=== PATIENT | male | born 1965 | race Caucasian/White ===

== ENCOUNTER 2016-06-13 13:18 | Outpatient (CLI) ==
[2014-08-09 12:00] VITALS: BMI 32.3
[2016-06-13 14:12] LABS: BASOPHILS # (AUTO) 0.1 K/uL (0-0.2); BASOPHILS % (AUTO) 0.7 % (0.0-3.0); EOSINOPHILS # (AUTO) 0.7 K/ul (0.0-0.7); EOSINOPHILS % (AUTO) 9.8 % (0.0-7.0); HEMATOCRIT 45.2 % (42.0-52.0); HEMOGLOBIN 15.7 g/dl (14.0-18.0); IMMATURE GRANULOCYTE % (AUTO) 0.4 % (0.0-5.0); LYMPHOCYTES # (AUTO) 1.4 K/uL (0.60-3.4); LYMPHOCYTES % (AUTO) 19.6 (10.0-50.0); MEAN CORPUSCULAR HEMOGLOBIN 32.8 pg (27.0-31.0); MEAN CORPUSCULAR HGB CONC 34.7 (31.8-35.4); MEAN CORPUSCULAR VOLUME 94.6 fl (80.0-94.0); MONOCYTES # (AUTO) 0.5 K/uL (0.4-2.0); NEUTROPHILS # (AUTO) 4.6 K/ul (2.0-6.9); NEUTROPHILS % (AUTO) 62.5; PLATELET COUNT 128 10^3/uL (140-440); RED BLOOD COUNT 4.78 10^6/ul (4.70-6.10); WHITE BLOOD COUNT 7.31 K/ul (4.2-10.2)
[2016-06-13 14:29] LABS: ALBUMIN 3.7 g/dL (3.4-5.0); ALBUMIN/GLOBULIN RATIO 1.03; BILIRUBIN,TOTAL 0.55 mg/dL (0.00-1.20); BUN/CREATININE RATIO 9.09; CALCIUM 9.4 mg/dL (8.2-10.2); CHOL/HDL RATIO 3.4 (4.5-6.4); CREATININE 0.88 mg/dL (0.60-1.10); TOTAL PROTEIN 7.3 g/dL (6.4-8.2)
== END 2016-06-13 13:19 | disposition home or self-care (01) ==
LOC: LAB 13:18
PROVIDERS: ATTEND Nurse Practitioner Family
DX: E11.9 Type 2 diabetes mellitus without complications (principal); I10 Essential (primary) hypertension; E78.1 Pure hyperglyceridemia; E78.5 Hyperlipidemia, unspecified; Z12.5 Encounter for screening for malignant neoplasm of prostate
CPT/HCPCS: 36415; 80053; 80061; 83036; 85025

== ENCOUNTER 2016-10-03 12:50 | Outpatient (CLI) ==
[2014-08-09 12:00] VITALS: BMI 32.3
[2016-10-03 13:47] LABS: ALBUMIN 3.7 g/dL (3.4-5.0); ALBUMIN/GLOBULIN RATIO 1.19; ANION GAP 15.7; BILIRUBIN,TOTAL 0.89 mg/dL (0.00-1.20); BUN/CREATININE RATIO 10.34; CALCIUM 8.9 mg/dL (8.2-10.2); CREATININE 0.87 mg/dL (0.60-1.10); POTASSIUM 3.7 mmol/L (3.5-5.1); TOTAL PROTEIN 6.8 g/dL (6.4-8.2)
[2016-10-03 14:40] LABS: BASOPHILS # (AUTO) 0.1 K/uL (0-0.2); EOSINOPHILS # (AUTO) 0.8 K/ul (0.0-0.7); EOSINOPHILS % (AUTO) 9.8 % (0.0-7.0); HEMATOCRIT 43.3 % (42.0-52.0); HEMOGLOBIN 15.1 g/dl (14.0-18.0); IMMATURE GRANULOCYTE % (AUTO) 0.4 % (0.0-5.0); LYMPHOCYTES % (AUTO) 24.2 (10.0-50.0); MEAN CORPUSCULAR HGB CONC 34.9 (31.8-35.4); MEAN CORPUSCULAR VOLUME 94.5 fl (80.0-94.0); MONOCYTES # (AUTO) 0.5 K/uL (0.4-2.0); MONOCYTES % (AUTO) 6.3 (0-10); NEUTROPHILS # (AUTO) 4.9 K/ul (2.0-6.9); NEUTROPHILS % (AUTO) 58.3; PLATELET COUNT 125 10^3/uL (140-440); RED BLOOD COUNT 4.58 10^6/ul (4.70-6.10); WHITE BLOOD COUNT 8.38 K/ul (4.2-10.2)
== END 2016-10-03 12:51 | disposition home or self-care (01) ==
LOC: LAB 12:50
PROVIDERS: ATTEND Nurse Practitioner Family
DX: E11.9 Type 2 diabetes mellitus without complications (principal); E78.1 Pure hyperglyceridemia; E78.5 Hyperlipidemia, unspecified; D64.9 Anemia, unspecified; E55.9 Vitamin D deficiency, unspecified; I10 Essential (primary) hypertension; Z12.5 Encounter for screening for malignant neoplasm of prostate
CPT/HCPCS: 36415; 80053; 80061; 82306; 83036; 84443; 85025

== ENCOUNTER 2017-01-28 13:00 | Outpatient (CLI) ==
[2014-08-09 12:00] VITALS: BMI 32.3
[2017-01-28 13:22] LABS: BASOPHILS # (AUTO) 0.1 K/uL (0-0.2); BASOPHILS % (AUTO) 1.2 % (0.0-3.0); EOSINOPHILS # (AUTO) 0.8 K/ul (0.0-0.7); EOSINOPHILS % (AUTO) 11.8 % (0.0-7.0); HEMATOCRIT 45.7 % (42.0-52.0); HEMOGLOBIN 16.3 g/dl (14.0-18.0); IMMATURE GRANULOCYTE % (AUTO) 0.3 % (0.0-5.0); LYMPHOCYTES # (AUTO) 2.6 K/uL (0.60-3.4); LYMPHOCYTES % (AUTO) 38.5 (10.0-50.0); MEAN CORPUSCULAR HEMOGLOBIN 34.2 pg (27.0-31.0); MEAN CORPUSCULAR HGB CONC 35.7 (31.8-35.4); MONOCYTES # (AUTO) 0.5 K/uL (0.4-2.0); MONOCYTES % (AUTO) 7.4 (0-10); NEUTROPHILS # (AUTO) 2.7 K/ul (2.0-6.9); NEUTROPHILS % (AUTO) 40.8; PLATELET COUNT 158 10^3/uL (140-440); RED BLOOD COUNT 4.76 10^6/ul (4.70-6.10); WHITE BLOOD COUNT 6.62 K/ul (4.2-10.2)
[2017-01-28 13:34] LABS: ALBUMIN 3.7 g/dL (3.4-5.0); ANION GAP 17.8; BILIRUBIN,TOTAL 0.64 mg/dL (0.00-1.20); BUN/CREATININE RATIO 12.5; CALCIUM 9.5 mg/dL (8.2-10.2); CHOL/HDL RATIO 4.9 (4.5-6.4); CREATININE 0.8 mg/dL (0.60-1.10); POTASSIUM 3.8 mmol/L (3.5-5.1); TOTAL PROTEIN 7.4 g/dL (6.4-8.2)
== END 2017-01-28 13:01 | disposition home or self-care (01) ==
LOC: LAB 13:00
PROVIDERS: ATTEND Nurse Practitioner Family
DX: E78.1 Pure hyperglyceridemia (principal); E11.9 Type 2 diabetes mellitus without complications; N18.9 Chronic kidney disease, unspecified; D63.1 Anemia in chronic kidney disease
CPT/HCPCS: 36415; 80053; 80061; 83036; 85025

== ENCOUNTER 2017-05-08 08:31 | Outpatient (CLI) | payer OTHER ==
[2014-08-09 12:00] VITALS: BMI 32.3
== END 2017-05-08 08:32 | disposition home or self-care (01) ==
LOC: LAB 08:31
PROVIDERS: ATTEND Nurse Practitioner Family
DX: E78.1 Pure hyperglyceridemia (principal); E78.5 Hyperlipidemia, unspecified; E11.9 Type 2 diabetes mellitus without complications; D69.6 Thrombocytopenia, unspecified; Z72.0 Tobacco use
CPT/HCPCS: 36415; 80053; 80061; 83036; 85025

== ENCOUNTER 2017-08-16 13:45 | Outpatient (CLI) ==
[2014-08-09 12:00] VITALS: BMI 32.3
== END 2017-08-16 13:46 | disposition home or self-care (01) ==
LOC: LAB 13:45
PROVIDERS: ATTEND Nurse Practitioner Family
DX: E11.9 Type 2 diabetes mellitus without complications (principal); E78.1 Pure hyperglyceridemia; I10 Essential (primary) hypertension
CPT/HCPCS: 36415; 80053; 80061; 83036; 85025

== ENCOUNTER 2017-10-09 14:58 | Emergency (ER) ==
[2017-10-09 15:08] VITALS: BP 146/92; TEMP 98.8; BMI 29.0
[2017-10-09] MEDS ORDERED: NORCO 10-325 PO STA (15:25)
--- NOTE | 2017-10-09 15:41 | ED.PDOC ---
General ED Provider: Dr. BRENDA TROTTER Chief Complaint: Chest Wall Injury/Pain Stated Complaint: right lower chest wall blunt trauma Time Seen by Physician: 15:00 (NELLY PRESENT AT ALL TIMES ) Mode of Arrival: Walk-In Information Source: Patient Exam Limitations: No limitations Primary Care Provider: AJIT MONTOYA Nursing and Triage Documentation Reviewed and Agree: Yes (NO HEAD OR NECK INJURY ) Does patient meet sepsis criteria?: No System Inflammatory Response Syndrome: Not Applicable Sepsis Protocol: For patient's 13 years and over: Temp is 96.8 and below OR 101 and greater Pulse >90 BPM Resp >20/minute Acutely Altered Mental Status Are patient's symptoms suggestive of a new infection, such as: -Pneumonia -Skin, Soft Tissue -Endocarditis -UTI -Bone, Joint Infection -Implantable Device -Acute Abdominal Infection -Wound Infection -Meningitis -Blood Stream Catheter Infection -Unknown Trauma/Injury Complaint Exam - Truncal Trauma Complaint/Exam Location of Pain: Reports: Right, Chest, Abdomen (RUQ ) Onset: 1 DAY A Symptoms Are: Still present Onset of Pain: Reports: Hours Initial Severity: Moderate Current Severity: Mild Mechanism: Reports: Blunt trauma, Direct blow, Fall. Denies: Penetrating trauma Aggravating: Reports: Movement Alleviating: Reports: Rest Associated Signs and Symptoms: Reports: Nausea Related Surgical History: Reports: None C-Collar in Place: N/A Backboard in Place: N/A Vertebral Tenderness Present: No Vertebral Deformity Present: No Trachial Deviation Present: No JVD Present: No Crepitus Present: No Diminished Breath Sounds: No Reproducible Pain at: YES NO POINT TENDERNESS BUT REPORTS OF A PAIN OVER T SPINE Muffled Heart Sounds Present: No Paradoxical Chest Wall Movement Present: No Abdominal Guarding Present: No Abdominal Rigidity Present: No Referred Shoulder Pain (Kehr's Sign) Present: No Skin Findings: Present: Normal findings Differential Diagnoses: Liver Trauma, Rib Fracture, Thoracic Sprain, Thoracic Strain Review of Systems - Review Of Systems Constitutional: Reports: No symptoms Eyes: Reports: No symptoms Ears, Nose, Mouth, Throat: Reports: No symptoms Respiratory: Reports: No symptoms Cardiac: Reports: Other (RIGHTSIDED CHEST WALL TENDERNESS AND RUQ PAIN) GI: Reports: Abdominal pain (SEE ABOVE) : Reports: No symptoms Musculoskeletal: Reports: Back pain (ONLY T SPINE ) Skin: Reports: No symptoms Neurological: Reports: No symptoms Endocrine: Reports: No symptoms Hematologic/Lymphatic: Reports: No symptoms All Other Systems: Reviewed and Negative Past Medical History - Past Medical History Previously Healthy: No Endocrine: Reports: None, DM 2, Dyslipidemia Cardiovascular: Reports: Hypertension Respiratory: Reports: None Hematological: Reports: None, Other (MASTOCYTOSIS) Gastrointestinal: Reports: GERD Genitourinary: Reports: CKD, Other (GOUT) Neuro/Psych: Reports: Seizure, Depression Musculoskeletal: Reports: Gout Cancer: Reports: None - Surgical History General Surgical History: Reports: None - Family History Family History: Reports: None - Social History Smoking Status: Current every day smoker, Light tobacco smoker Hx Substance Use: No Alcohol Screening: Occasionally Physical Exam - Physical Exam Appearance: Well-appearing, No pain distress, Well-nourished Eyes: CESARIO, EOMI, Conjunctiva clear ENT: Ears normal, Nose normal, Oropharynx normal Respiratory: Airway patent, Breath sounds clear, Breath sounds equal, Respirations nonlabored Cardiovascular: RRR, Pulses normal, No rub, No murmur GI/: Soft, Nontender, No masses, Bowel sounds normal, No Organomegaly Musculoskeletal: Normal strength (RIGHT CHEST WALL PAIN) Skin: Warm, Dry, Normal color Neurological: Sensation intact, Motor intact, Reflexes intact, Cranial nerves intact, Alert, Oriented Psychiatric: Affect appropriate, Mood appropriate Critical Care Note - Critical Care Note Total Time (mins): 0 Course - Course Orders, Labs, Meds: Orders Category Date Time Status Hydrocodone Bit/Acetaminophen [[place] 10-325] MEDS 10/09/17 15:25 Discontinued 1 tab PO ONCE STA CT ABDOMEN W/O CONTRAST Stat RADS 10/09/17 15:[address] CHEST W/O CONTRAST Stat RADS 10/09/17 15:[address] THORACIC SPINE W/O CONTRAST Stat RADS 10/09/17 15:25 Completed Medications Discontinued Medications Generic Name Dose Route Start Last Admin Trade Name Freq PRN Reason Stop Dose Admin Hydrocodone Bitart/Acetaminophen 1 tab 10/09/17 15:25 [place] 10-325 PO 10/09/17 15:26 ONCE STA Vital Signs: Temp Pulse Resp BP Pulse Ox 10/09/17 14:59 98.8 F 88 20 146/92 H 96 Departure - Departure Time of Disposition: 16:23 Disposition: HOME SELF-CARE Discharge Problem: Chest wall pain, Chest injury Instructions: Thoracic Pain (ED), Noncardiac Chest Pain (ED) Condition: Good Pt referred to PMD for follow-up: Yes IPMP verified?: No Additional Instructions: Please call your Family Physician as soon as possible to schedule a follow-up appointment. Allergies/Adverse Reactions: Allergies NSAIDS (Non-Steroidal Anti-Inflamma Adverse Reaction (Verified 10/09/17 15:10) kidney disease and advised to avoid Disposition Discussed With: Patient, Family
--- NOTE | 2017-10-09 16:07 | CT ---
EXAM: CT thoracic spine without contrast HISTORY: Right upper quadrant abdominal and back pain post fall from porch. Pain most pronounced adj acent to the right ribs. COMPARISON: CT abdomen same day. TECHNIQUE: Serial axial images of the thoracic spine were obtained without contrast. These were vie wed in multiple planes. FINDINGS: The vertebral bodies demonstrate no acute compression fracture with few scattered anterior disc osteophytes. There is no lytic or blastic lesion. Limited views of the posterior right ribs de monstrate no visualized fracture. There is no lytic or blastic lesion. The soft tissues are unremar kable with sequela of old granulomatous disease. Lungs demonstrate minimal central lobular ground-gla ss and emphysema. IMPRESSION: 1. No acute osseous abnormality of the thoracic spine or visualized portions of the ribs. This is b negin visualized on same day CT chest. 2. Mild central lobular ground-glass and emphysema. This is suggestive of small airways inflammatio n.
--- NOTE | 2017-10-09 16:09 | CT ---
Exam: CT abdomen without intravenous contrast. Comparison: Ultrasound right upper quadrant performed 12/05/2015. Reason for exam: Fall with trauma. FINDINGS: Image interpretation is limited by the lack of intravenous contrast administration. No pleural effusion, or focal consolidation in the partially imaged lung bases. The partially imaged heart does not appear enlarged. The gallbladder, spleen, adrenal glands, and pancreas appear grossly unremarkable within limitations of a noncontrasted study. No hydronephrosis, hydroureter or nephrolithiasis in either kidney. No focal small bowel dilatation or transition point. No intra-abdominal free air. No vertebral body height loss is seen. There is mild degenerative disease with osteophyte formation. Impression: No acute traumatic findings are seen within the abdomen.
--- NOTE | 2017-10-09 16:10 | CT ---
EXAM: CT chest without contrast HISTORY: Fall with right-sided rib pain COMPARISON: Same day CT thoracic spine and CT abdomen TECHNIQUE: Serial axial images of the chest were obtained from the lung apices to the upper abdomen without contrast. These were viewed in multiple planes. FINDINGS: The thyroid is normal. The visualized vessels are unremarkable without aneurysm or stenos is. The heart is normal in size without pericardial effusion. There are no pathologically enlarged mediastinal or hilar lymph nodes. Calcified right hilar and subcarinal lymph nodes are present. There is no pneumothorax or effusion. There is minimal emphysematous disease. There is central lobu lar ground-glass opacities in the lungs with minimal right basilar atelectasis. There is no focal con solidation or suspicious nodule. Central airways are patent. The osseous structures demonstrate no cortical irregularity or displaced rib fracture. Soft tissues in the upper abdomen are better evaluated on same day CT abdomen. IMPRESSION: 1. No acute traumatic injury or rib fracture. 2. Mild emphysema and central lobular ground-glass suggestive of small airways inflammation.
== END 2017-10-09 16:25 | disposition home or self-care (01) ==
LOC: ED 14:58
DX: R07.89 Other chest pain (principal); M54.6 Pain in thoracic spine; R10.11 Right upper quadrant pain; W22.8XXA Striking against or struck by other objects, initial encounter; W19.XXXA Unspecified fall, initial encounter; F17.210 Nicotine dependence, cigarettes, uncomplicated
CPT/HCPCS: 99283

== ENCOUNTER 2018-03-03 00:57 | Emergency (ER) | payer OTHER ==
[2018-03-03 01:00] VITALS: BP 148/101; TEMP 96.8; BMI 27.8
--- NOTE | 2018-03-03 01:18 | ED.PDOC ---
General ED Provider: Dr. ROLANDO BUSTAMANTE MD Chief Complaint: Finger Laceration Stated Complaint: cut my finger Time Seen by Physician: 01:15 Mode of Arrival: Walk-In Information Source: Patient Exam Limitations: No limitations Primary Care Provider: AJIT MONTOYA Nursing and Triage Documentation Reviewed and Agree: Yes Does patient meet sepsis criteria?: No If yes, has appropriate treatment been initiated?: Yes System Inflammatory Response Syndrome: Not Applicable Sepsis Protocol: For patient's 13 years and over: Temp is 96.8 and below OR 101 and greater Pulse >90 BPM Resp >20/minute Acutely Altered Mental Status Are patient's symptoms suggestive of a new infection, such as: -Pneumonia -Skin, Soft Tissue -Endocarditis -UTI -Bone, Joint Infection -Implantable Device -Acute Abdominal Infection -Wound Infection -Meningitis -Blood Stream Catheter Infection -Unknown Skin Complaint Exam - Laceration/Abrasion/Hand Complaint/Exam Location of Injury: Right, Digit #2 Mechanism of Injury: Laceration, Sharp trauma Symptoms Are: Still present Initial Severity: Moderate Current Severity: Mild Aggravating: None Alleviating: Compression Related History: Reports: Right hand dominant Differential Diagnoses: Laceration Review of Systems - Review Of Systems Constitutional: Reports: Other (ETOH) Eyes: Reports: No symptoms Ears, Nose, Mouth, Throat: Reports: No symptoms Respiratory: Reports: No symptoms Cardiac: Reports: No symptoms GI: Reports: No symptoms : Reports: No symptoms Musculoskeletal: Reports: No symptoms Skin: Reports: No symptoms Neurological: Reports: No symptoms Endocrine: Reports: No symptoms Hematologic/Lymphatic: Reports: No symptoms All Other Systems: Reviewed and Negative Past Medical History - Past Medical History Previously Healthy: No Endocrine: Reports: None, DM 2, Dyslipidemia Cardiovascular: Reports: Hypertension Respiratory: Reports: None Hematological: Reports: None, Other (MASTOCYTOSIS) Gastrointestinal: Reports: GERD Genitourinary: Reports: CKD, Other (GOUT) Neuro/Psych: Reports: Seizure, Depression Musculoskeletal: Reports: Gout Cancer: Reports: None - Surgical History General Surgical History: Reports: None - Family History Family History: Reports: None - Social History Smoking Status: Current every day smoker, Heavy tobacco smoker Hx Substance Use: No Alcohol Screening: Occasionally - Immunizations Tetanus Shot up to Date: Yes Physical Exam - Physical Exam Appearance: Obese Pain Distress: Mild Critical Care Note - Critical Care Note Total Time (mins): 0 Course - Course Vital Signs: Temp Pulse Resp BP Pulse Ox 03/03/18 00:57 96.8 F L 97 H 18 148/101 H 99 Departure - Departure Time of Disposition: 02:00 Disposition: HOME SELF-CARE Discharge Problem: Finger laceration Condition: Good Pt referred to PMD for follow-up: Yes IPMP verified?: No Prescriptions: Tramadol HCl [Ultram] 50 mg PO BID 3 Days #6 tablet NS Allergies/Adverse Reactions: Allergies NSAIDS (Non-Steroidal Anti-Inflamma Adverse Reaction (Verified 10/09/17 15:10) kidney disease and advised to avoid Home Medications: Ambulatory Orders Tramadol HCl [Ultram] 50 mg PO BID 3 Days #6 tablet NS 03/03/18
== END 2018-03-03 01:28 | disposition home or self-care (01) ==
LOC: ED 00:57
DX: S61.210A Laceration without foreign body of right index finger without damage to nail, initial encounter (principal); W26.9XXA Contact with unspecified sharp object(s), initial encounter; F17.210 Nicotine dependence, cigarettes, uncomplicated
CPT/HCPCS: 99282

== ENCOUNTER 2018-05-01 11:41 | Outpatient (CLI) | payer OTHER | END 2018-05-01 11:42 | disposition home or self-care (01) | LOC: LAB 11:41 | PROVIDERS: ATTEND Nurse Practitioner Family | DX: E11.9 Type 2 diabetes mellitus without complications (principal); I10 Essential (primary) hypertension; E78.1 Pure hyperglyceridemia; E78.5 Hyperlipidemia, unspecified | CPT/HCPCS: 36415; 80053; 80061; 83036; 85025 ==

== ENCOUNTER 2018-07-24 12:12 | Outpatient (CLI) | END 2018-07-24 12:13 | disposition home or self-care (01) | LOC: LAB 12:12 | PROVIDERS: ATTEND Nurse Practitioner Family | DX: E11.9 Type 2 diabetes mellitus without complications (principal); N18.9 Chronic kidney disease, unspecified; E78.1 Pure hyperglyceridemia | CPT/HCPCS: 36415; 80053; 80061; 83036; 85025 ==

== ENCOUNTER 2018-10-29 10:44 | Outpatient (CLI) | END 2018-10-29 10:45 | disposition home or self-care (01) | LOC: LAB 10:44 | PROVIDERS: ATTEND Nurse Practitioner Family | DX: E11.9 Type 2 diabetes mellitus without complications (principal); E78.1 Pure hyperglyceridemia; E78.5 Hyperlipidemia, unspecified; D64.9 Anemia, unspecified; Z12.5 Encounter for screening for malignant neoplasm of prostate | CPT/HCPCS: 36415; 80053; 80061; 83036; 85025 ==

== ENCOUNTER 2018-11-04 08:41 | Outpatient (POV) | payer OTHER | END 2018-11-04 17:00 | LOC: OUTPT 08:41 | PROVIDERS: ATTEND Otolaryngology | DX: H91.90 Unspecified hearing loss, unspecified ear (principal) ==